=== PATIENT | female | born 1985 | race Caucasian/White ===

== ENCOUNTER 2017-09-08 17:37 | Emergency (ER) | payer MEDICAID | END 2017-09-08 18:25 | disposition home or self-care (01) | LOC: E/R 17:37 | DX: O99.89 Other specified diseases and conditions complicating pregnancy, childbirth and the puerperium (principal); J04.0 Acute laryngitis; Z3A.01 Less than 8 weeks gestation of pregnancy | CPT/HCPCS: 99283; Z7502 ==